=== PATIENT | female | born 2000 | race Caucasian/White ===

== ENCOUNTER → 2021-04-08 | Outpatient (REF) | payer SELFPAY ==
[2021-04-09 19:02] LABS: GC DNA AMPLIFICATION NEGATIVE (NEGATIVE)
== END ==
LOC: M WUC 16:46
PROVIDERS: ATTEND Physician Assistant
DX: R30.0 Dysuria (principal)

== ENCOUNTER 2022-03-21 11:12 | Day surgery (SDC) | payer OTHER ==
[~2022-03-21] VITALS: Ht 160 cm; Wt 67.0 kg
[~2022-03-21 11:12] MED LIST: NORE1TAB13 PO
[2022-03-21] MEDS ORDERED: LIDOCAINE 2% 100MG/5ML SDV (FOR ANES.) As Ordered ONE (13:04)
[2022-03-21] MEDS ORDERED: propofoL 200 MG/20 ML VIAL As Ordered ONE (13:04)
[2022-03-21 13:38] VITALS: BP 135/92
== END 2022-03-21 13:47 | disposition home or self-care (01) ==
LOC: M OPP 11:12
PROVIDERS: ATTEND Internal Medicine Gastroenterology
DX: D12.6 Benign neoplasm of colon, unspecified (principal); K62.5 Hemorrhage of anus and rectum; K59.04 Chronic idiopathic constipation; Z79.3 Long term (current) use of hormonal contraceptives; Z87.19 Personal history of other diseases of the digestive system